=== PATIENT | female | born 1960 | race Caucasian/White ===

== ENCOUNTER → 2017-06-13 | Outpatient (CLI) | payer MEDICARE, OTHER ==
[~2017-06-13] MED LIST: ATEN50TA2 PO; BENA25TA10 PO; CALC600T31 PO; CALCCHW8 PO; CRAN400C PO; DOXY-278 PO; FASL250I2 IM; FLAX10002 PO; IBUP-1022 PO; LEVA1TAB2 PO; LUTE6TAB2 PO; OXYC1TAB23 PO; PANT40TA2 PO; SYNT150T PO; TURM500C3 PO; TYLE325T5 PO; VITA200016 PO; VITATAB11 PO; ZYRT10CA PO
--- NOTE | 2017-06-13 12:04 | REP ---
Ultrasound of the neck for palpable lump: The patient reportedly has a history of breast CA carcinoma and additionally history of parotid carcinoma with left parotidectomy. Additionally, the patient has a total thyroidectomy. There is a 6 x 3 mm height or echoic mass inferior to the mandible on the right. There are two hyperechoic masses inferior to the mandible on the left, one measuring 7 x 4 by 6 mm and the other measuring 10 x 6 x 6 mm. On the right. There is a lymph node measuring 10 x 9 x 5 mm. On the left. There is a lymph node measuring 2 x 6 x 6 mm. Given the clinical history consider follow-up MRI of the neck and possibly the PET scan. Signed by Bharathi Alonso MD 06/13/2017 11:55 A
== END ==
LOC: M RAD 10:44
PROVIDERS: ATTEND Internal Medicine Medical Oncology
DX: R22.1 Localized swelling, mass and lump, neck (principal)

== ENCOUNTER 2017-07-14 08:23 | Observation (INO) | payer MEDICARE, OTHER ==
[~2017-07-14] VITALS: Ht 172.7 cm; Wt 181.8 kg
[2017-07-14] MEDS ORDERED: TYLE325T5 PO (08:50)
[2017-07-14] MEDS ORDERED: CRAN400C PO (08:50)
[2017-07-14] MEDS ORDERED: FASL250I2 IM (08:50)
[2017-07-14] MEDS ORDERED: VITA200016 PO (08:50)
[2017-07-14] MEDS ORDERED: OXYC1TAB23 PO (08:50)
[2017-07-14] MEDS ORDERED: CALCCHW8 PO (08:50)
[2017-07-14] MEDS ORDERED: PANT40TA2 PO (08:50)
[2017-07-14] MEDS ORDERED: ATEN50TA2 PO (08:50)
[2017-07-14] MEDS ORDERED: FLAX10002 PO (08:50)
[2017-07-14] MEDS ORDERED: IBUP-1022 PO (08:50)
[2017-07-14] MEDS ORDERED: LUTE6TAB2 PO (08:50)
[2017-07-14] MEDS ORDERED: TURM500C3 PO (08:50)
[2017-07-14] MEDS ORDERED: SYNT150T PO (08:50)
[2017-07-14] MEDS ORDERED: VITATAB11 PO (08:50)
[2017-07-14] MEDS ORDERED: BENA25TA10 PO (08:54)
[2017-07-14] MEDS ORDERED: ZYRT10CA PO (08:54)
[2017-07-14] MEDS ORDERED: NS 1,000 ML IV ONE (09:15)
[2017-07-14] MEDS ORDERED: CEFTAROLINE FOSAMIL 600 MG in D5W MINI-BAG PLUS 50 ML IV ONE (09:30)
[2017-07-14 09:43] LABS: BASO # 0.1 K/mm3 (0.0-0.2); BASO % 0.6 % (0.0-1.0); EOS # 0.2 K/mm3 (0.0-0.50); EOS % 2.2 % (0.0-3.0); LARGE UNSTAINED CELL # 0.3 K/mm3 (0.0-0.4); LARGE UNSTAINED CELL % 2.5 % (0.0-4.0); LYMPH % 17.9 % (24.0-44.0); MEAN CORPUSCULAR HEMOGLOBIN 31.3 pg (27.0-33.0); MEAN CORPUSCULAR HGB CONC 32.7 g/dl (32.0-36.5); MEAN CORPUSCULAR VOLUME 95.8 fl (80.0-96.0); MONO # 0.6 K/mm3 (0.0-0.8); MONO % 6.4 % (0.0-5.0); NEUTROPHILS # 6.8 K/mm3 (1.8-7.7); NEUTROPHILS % 70.4 % (36.0-66.0); PLATELET COUNT, AUTOMATED 192 k/mm3 (150-450); WHITE BLOOD COUNT 9.7 K/mm3 (4.0-10.0)
[2017-07-14 10:21] LABS: ANION GAP 6 MEQ/L (8-16); BLOOD UREA NITROGEN 16 MG/DL (7-18); CALCIUM LEVEL 9.1 MG/DL (8.5-10.1); CARBON DIOXIDE LEVEL 31 MEQ/L (21-32); CHLORIDE LEVEL 102 MEQ/L (98-107); CREATININE FOR GFR 0.84 MG/DL (0.55-1.02); GLOMERULAR FILTRATION RATE > 60.0 (>51); GLUCOSE, FASTING 111 MG/DL (70-105); POTASSIUM SERUM 3.3 MEQ/L (3.5-5.1); SODIUM LEVEL 139 MEQ/L (136-145)
[2017-07-14] MEDS ORDERED: CALC600T31 PO (13:37)
[2017-07-14] MEDS ORDERED: diphenhydrAMINE 25 MG CAP PO PRN (13:45)
[2017-07-14] MEDS ORDERED: PERCOCET 5MG/325MG TAB PO PRN (13:45)
[2017-07-14] MEDS ORDERED: IBUPROFEN 600 MG TAB PO PRN (13:45)
[2017-07-14] MEDS ORDERED: ONDANSETRON 4MG/2ML VIAL (J2405) IV PRN (13:45)
[2017-07-14] MEDS ORDERED: ACETAMINOPHEN 325 MG TAB PO PRN (13:45)
[2017-07-14] MEDS ORDERED: LevoFLOXacin IV 500 MG in APPROPRIATE DILUENT 1 EA IV SCH (14:00)
[2017-07-14] MEDS ORDERED: POTASSIUM CHLORIDE 10 MEQ SR TABLET PO ONE (14:00)
--- NOTE | 2017-07-14 14:29 | HPEPDOC ---
General Date of Admission Jul 14, 2017 at 13:41 Attending Physician: CHRIS MCDANIELS MD Chief Complaint The patient is a 57-year-old female admitted with a reason for visit of Cellulitis. History of Present Illness 57-year-old female with past medical history of hypertension, hypothyroidism, GERD, pulmonary embolism, recurrent breast cancer which is now metastatic and the patient follows with Dr. Tadeo of oncology, and is currently receiving chemotherapy every month for the last 1 year for presented to the ER with a chief complaint of rash with erythema across the abdominal wall. The patient states that the rash appeared this morning. She denies noting any fever, but does state that she has been feeling more lethargic/tired this morning. She denies any open wounds, any trauma to the abdominal region, or any complaints of abdominal pain. In the ER, the patient was noted to be afebrile, with a normal white blood cell count. However, given the patient's history of breast cancer for which she is currently on chemotherapy for, the patient will be admitted to the hospitalist service for observation and IV antibiotic treatment. Home Medications Scheduled (Faslodex) 250 Mg/5 Ml Inj, 250 MG IM QMONTH, (Reported) (Flax Seed Oil 1000 mg) 1 Cap Cap, 1 CAP PO BID, (Reported) Atenolol (Atenolol) 50 Mg Tab, 50 MG PO BID, (Reported) B1/B2/B3/B5/B6 (Vitamin B Complex) 1 Tab Tab, 1 TAB PO DAILY, (Reported) Calcium (Calcium) 600 Mg Tab, 600 MG PO QHS, (Reported) Cetirizine HCl (Zyrtec Allergy) 10 Mg Cap, 10 MG PO QHS, (Reported) Cranberry Extract (Cranberry) 400 Mg Cap, 400 MG PO BID, (Reported) Curcuma Longa (Turmeric) Extra (Turmeric) 500 Mg Cap, 500 MG PO DAILY, (Reported ) Levothyroxine Sodium (Synthroid) 150 Mcg Tab, 150 MCG PO DAILY, (Reported) Pantoprazole Sodium (Pantoprazole Sodium) 40 Mg Tab, 40 MG PO QHS, (Reported) Vegetable Enzyme (Lutein) 6 Mg Tab, 6 MG PO DAILY, (Reported) Vitamin D (Vitamin D) 2,000 Unit Cap, 2,000 UNIT PO BID, (Reported) Scheduled PRN Acetaminophen (Tylenol) 325 Mg Tab, 650 MG PO TID PRN for PAIN, (Reported) Diphenhydramine Hcl (Benadryl Allergy) 25 Mg Tab, 25 MG PO QHS PRN for ALLERGIES , (Reported) Ibuprofen (Ibuprofen) 600 Mg Tab, 600 MG PO Q6H PRN for PAIN, (Reported) Oxycodone/Acetaminophen (Oxycodone/Acetaminophen 5-325 mg) 1 Tab Tab, 1 TAB PO Q4H PRN for PAIN, (Reported) Allergies Coded Allergies: Filgrastim (Verified Allergy, Severe, ANAPHYLAXIS PER PATIENT, 02/09/13) Morphine (Verified Allergy, Severe, ANAPHYLAXIS PER PATIENT, 02/09/13) Gentamicin (Verified Allergy, Intermediate, HIVES ON PROMIXAL AND DISTAL LOWER EXTREMITIES, 02/09/13) Leuprolide (Verified Allergy, Intermediate, HIVE, 02/09/13) Penicillins (Verified Allergy, Intermediate, HIVES PROMIMAL/DISTAL EXTREM; LIKELEY RELATED TO GENT THOUGH, 02/09/13) Penicillins Cross Reactors (Verified Allergy, Intermediate, HIVES PROMIMAL /DISTAL EXTREM;LIKELEY RELATED TO GENT THOUGH, 02/09/13) Past Medical History Medical History As noted in HPI. Surgical History Thyroid surgery, hysterectomy, cholecystectomy, right-sided mastectomy, with implant insertion, left breast reduction Family History Significant Family History: No pertinent family hx Social History * Smoker: Denies Alcohol: Denies Drugs: denies Review of Symptoms Other systems 10 point review of systems negative unless otherwise specified HPI. Physical Examination General Exam: Positive: Alert, Cooperative, No Acute Distress ENT Exam: Positive: Atraumatic, Mucous membr. moist/pink Neck Exam: Negative: JVD Chest Exam: Positive: Clear to auscultation, Normal air movement Heart Exam: Positive: Rate Normal, Normal S1, Normal S2 Abdomen Exam: Positive: Soft, Other (abdominal wall noted to have cellulitic changes from one flank stretching across to the other flank. No warmth or tenderness on palpation. No open lesions noted. No guarding, rigidity, or rebound tenderness noted on palpation.), Negative: Tenderness Extremity Exam: Negative: Tenderness, Swelling Psych Exam: Positive: Oriented x 3 Vital Signs Vital Signs Date Time Temp Pulse Resp B/P (MAP) Pulse Ox O2 Delivery O2 Flow Rate FiO2 07/14/17 13:31 97.9 65 20 135/80 (98) 91 Room Air Laboratory Data Labs 24H Laboratory Tests 2 07/14/17 09:23: White Blood Count 9.7, Red Blood Count 4.66, Hemoglobin 14.6, Hematocrit 44.6, Mean Corpuscular Volume 95.8, Mean Corpuscular Hemoglobin 31.3, Mean Corpuscular Hemoglobin Concent 32.7, Red Cell Distribution Width 14.0, Platelet Count 192, Neutrophils (%) (Auto) 70.4H, Lymphocytes (%) (Auto) 17.9L, Monocytes (%) (Auto) 6.4H, Eosinophils (%) (Auto) 2.2, Basophils (%) (Auto) 0.6 , Neutrophils # (Auto) 6.8, Lymphocytes # (Auto) 2.0, Monocytes # (Auto) 0.6, Eosinophils # (Auto) 0.2, Basophils # (Auto) 0.1, Large Unclassified Cells % 2.5 , Large Unclassified Cells # 0.3, Anion Gap 6L, Glomerular Filtration Rate > 60.0, Lactic Acid Level 0.9, Blood Urea Nitrogen 16, Creatinine 0.84, Sodium Level 139, Potassium Level 3.3L, Chloride Level 102, Carbon Dioxide Level 31, Calcium Level 9.1 CBC/BMP Laboratory Tests 07/14/17 09:23 Red Blood Count 4.66, Mean Corpuscular Volume 95.8, Mean Corpuscular Hemoglobin 31.3, Mean Corpuscular Hemoglobin Concent 32.7, Red Cell Distribution Width 14.0 , Neutrophils (%) (Auto) 70.4 H, Lymphocytes (%) (Auto) 17.9 L, Monocytes (%) ( Auto) 6.4 H, Eosinophils (%) (Auto) 2.2, Basophils (%) (Auto) 0.6, Neutrophils # (Auto) 6.8, Lymphocytes # (Auto) 2.0, Monocytes # (Auto) 0.6, Eosinophils # ( Auto) 0.2, Basophils # (Auto) 0.1, Calcium Level 9.1 Microbiology Microbiology 07/14/17 Blood Culture, Received Pending 07/14/17 Blood Culture, Received Pending Plan / VTE VTE Prophylaxis Ordered?: Yes Plan Plan Abdominal Wall Cellulitis Patient is afebrile, with a normal white blood cell count, and a normal lactate However, given the patient's history of breast cancer for which she is currently on chemotherapy for, we will start the patient on empiric IV antibiotic treatment with Teflaro and Levaquin (penicillin allergy) Blood cultures have already been sent, and we will follow up with these We will order inflammatory markers as well to trend We will continue to monitor the patient's progress Hypertension, stable Continue atenolol Hypothyroidism Continue levothyroxine GERD Continue Protonix Metastatic Breast Cancer Receives chemotherapy every 4 weeks for the last 1 year, follows with Dr. Tadeo as an outpatient History of pulmonary embolism Status post treatment DVT prophylaxis Lovenox The patient will be admitted under the service of Dr. Mcdaniels, who will begin to follow the patient on 07/15/17 at 7 AM. WELLINGTON FERRARA MD Jul 14, 2017 14:29
[2017-07-14 14:30] LABS: ERYTHROCYTE SEDIMENTATION RATE 26 mm/hr (0-30)
[2017-07-14 15:27] VITALS: BP 136/84
[2017-07-14] MEDS ORDERED: CETIRIZINE (ZyrTEC) 10 MG TAB PO SCH (21:00)
[2017-07-14] MEDS ORDERED: PANTOPRAZOLE 40MG TAB (PROTONIX) PO SCH (21:00)
[2017-07-14] MEDS: VITAMIN D 1,000 INTERNATIONAL UNITS TABLET PO SCH (21:59)
[2017-07-14] MEDS: ATENOLOL 50 MG TAB PO SCH (22:00)
[2017-07-14] MEDS: CEFTAROLINE FOSAMIL 600 MG in D5W MINI-BAG PLUS 50 ML IV SCH (22:01)
[2017-07-14 22:05] VITALS: BP 144/79
[2017-07-15 06:00] VITALS: BP 126/74
[2017-07-15] MEDS ORDERED: LEVOTHYROXINE 150MCG TABLET (0.15MG) PO SCH (06:00)
[2017-07-15 07:08] LABS: BASO # 0.1 K/mm3 (0.0-0.2); BASO % 0.6 % (0.0-1.0); EOS # 0.4 K/mm3 (0.0-0.50); EOS % 4.3 % (0.0-3.0); LARGE UNSTAINED CELL # 0.3 K/mm3 (0.0-0.4); LARGE UNSTAINED CELL % 3.5 % (0.0-4.0); LYMPH # 2.2 K/mm3 (1.5-4.5); LYMPH % 19.2 % (24.0-44.0); MEAN CORPUSCULAR HEMOGLOBIN 31.3 pg (27.0-33.0); MEAN CORPUSCULAR HGB CONC 32.2 g/dl (32.0-36.5); MEAN CORPUSCULAR VOLUME 97.5 fl (80.0-96.0); MONO # 0.8 K/mm3 (0.0-0.8); MONO % 8.1 % (0.0-5.0); NEUTROPHILS # 6.2 K/mm3 (1.8-7.7); NEUTROPHILS % 64.3 % (36.0-66.0); PLATELET COUNT, AUTOMATED 174 k/mm3 (150-450); WHITE BLOOD COUNT 9.6 K/mm3 (4.0-10.0)
[2017-07-15 07:29] LABS: ALBUMIN/GLOBULIN RATIO 0.71 (1.00-1.93); ALKALINE PHOSPHATASE 62 U/L (45-117); ALT/SGPT 32 U/L (12-78); ANION GAP 5 MEQ/L (8-16); AST/SGOT 19 U/L (15-37); BILIRUBIN,TOTAL 0.4 MG/DL (0.2-1.0); BLOOD UREA NITROGEN 17 MG/DL (7-18); CALCIUM LEVEL 9.4 MG/DL (8.5-10.1); CARBON DIOXIDE LEVEL 30 MEQ/L (21-32); CHLORIDE LEVEL 106 MEQ/L (98-107); CREATININE FOR GFR 0.84 MG/DL (0.55-1.02); GLOMERULAR FILTRATION RATE > 60.0 (>51); GLUCOSE, FASTING 101 MG/DL (70-105); MAGNESIUM LEVEL 2.1 MG/DL (1.8-2.4); SODIUM LEVEL 141 MEQ/L (136-145); TOTAL PROTEIN 7.2 GM/DL (6.4-8.2)
[2017-07-15 07:31] LABS: ERYTHROCYTE SEDIMENTATION RATE 30 mm/hr (0-30)
[2017-07-15] MEDS ORDERED: ENOXAPARIN 40 MG/0.4 ML SYRINGE (J1650) SC SCH (09:00)
[2017-07-15] MEDS ORDERED: VITAMIN B COMPLEX/VIT C CAP PO SCH (09:00)
[2017-07-15] MEDS: VITAMIN D 1,000 INTERNATIONAL UNITS TABLET PO SCH (09:55)
[2017-07-15 09:56] VITALS: BP 141/82
[2017-07-15] MEDS: ATENOLOL 50 MG TAB PO SCH (09:56)
[2017-07-15] MEDS: CEFTAROLINE FOSAMIL 600 MG in D5W MINI-BAG PLUS 50 ML IV SCH (09:56)
[2017-07-15] MEDS ORDERED: DOXY-278 PO (11:20)
[2017-07-15] MEDS ORDERED: LEVA1TAB2 PO (11:20)
--- NOTE | 2017-07-15 17:50 | DSES ---
DATE OF ADMISSION: 07/14/2017 DATE OF DISCHARGE: 07/15/2017 ATTENDING PHYSICIAN: Dr. Adeline Bah PRIMARY CARE PHYSICIAN: Dr. Annette Conteh REFERRING PHYSICIAN: None. CONSULTATIONS: None. CONDITION ON DISCHARGE: Stable. FINAL DIAGNOSIS: Abdominal wall cellulitis. PROCEDURES: None. HISTORY OF PRESENT ILLNESS: Patient is a 57-year-old female with a past medical history of hypertension, hypothyroidism, GERD, pulmonary embolism, recurrent breast cancer which is not metastatic and follows Dr. Tadeo as an outpatient. Patient received chemotherapy every month for the last one year and presented to the emergency room with complaints of rash with erythema across her abdominal wall. Patient states that the rash appeared in the morning. She denies any fever. Denies any open wounds or trauma to the abdominal wall. Denies any abdominal pain. HOSPITAL COURSE: 1. Abdominal wall cellulitis. Patient is afebrile throughout the hospital course and on presentation in the emergency room the patients white cell count remained normal. Patient had a normal lactic acid. Patient was started on Ceftaroline and Levaquin for antibiotic coverage. Blood cultures were acquired and have been negative after 24 hours. On subsequent evaluation this morning the patient had significant improvement in her abdominal cellulitis. Her antibiotics were transitioned to oral medication, Levaquin and doxycycline. Patient was advised to followup with her primary care provider and to continue with antibiotics for completion of antibiotic course. 2. Hypertension. Blood pressure remains stable. Will continue with Atenolol. 3. Hypothyroidism. Continue with Levothyroxine. 4. GERD. Continue with the Protonix. 5. Metastatic breast cancer. Received chemotherapy every 4 weeks for the last one year. Will follow with Dr. Tadeo as an outpatient. 6. History of pulmonary embolism, status-post treatment. 7. DVT prophylaxis. Lovenox. DISCHARGE MEDICATIONS: The patient was discharged home with the following medication list: - acetaminophen 650 mg by mouth three times a day - atenolol 50 mg by mouth twice a day - vitamin B complex 1 tab by mouth daily - calcium 600 mg at bedtime - Cefatrizine 10 mg by mouth at bedtime - tumeric extract 500 mg by mouth daily - diphenhydramine 25 mg by mouth at bedtime as needed for allergies - Faslodex 250 mg intramuscular monthly - flax seed oil 1 capsule by mouth twice a day - ibuprofen 600 mg by mouth every 6 hours as needed for pain - levothyroxine 150 mcg by mouth daily - oxycodone/acetaminophen 5/325 1 tablet by mouth every 4 hours as needed for pain. - Protonix 40 mg by mouth at bedtime - vegetable enzyme 6 mg by mouth daily - vitamin D 2,000 units by mouth twice a day NEW MEDICATIONS PRESCRIBED: - doxycycline 100 mg by mouth twice a day for the next 7 days - levofloxacin 500 mg by mouth daily for the next 7 days DISCHARGE INSTRUCTIONS: Patient was advised to followup with her primary care provider within the next 7 days. She was advised to remain compliant with treatment plan and medications and return to the emergency room if she experiences any problems. TIME SPENT ON DISCHARGE: Greater than 35 minutes.
== END 2017-07-15 14:10 | disposition home or self-care (01) ==
LOC: M ED 08:23 → M ED INP 13:41 → M MS4PR 15:30
PROVIDERS: ADMIT Internal Medicine; ATTEND Internal Medicine
DX: L03.319 Cellulitis of trunk, unspecified (principal); I10 Essential (primary) hypertension; E03.9 Hypothyroidism, unspecified; K21.9 Gastro-esophageal reflux disease without esophagitis; Z86.711 Personal history of pulmonary embolism; Z85.3 Personal history of malignant neoplasm of breast; Z92.21 Personal history of antineoplastic chemotherapy; Z79.899 Other long term (current) drug therapy; Z88.0 Allergy status to penicillin; Z88.8 Allergy status to other drugs, medicaments and biological substances
CPT/HCPCS: 36415; 80048; 80053; 83605; 83735; 85025; 85652; 86140; 87040; 96365; 96366; 96367; 96372; 96374; 99284; G0378; J1650; J1956

== ENCOUNTER → 2017-08-04 | Outpatient (CLI) | payer MEDICARE, OTHER ==
--- NOTE | 2017-08-05 08:59 | REP ---
MR NECK WITHOUT AND WITH CONTRAST: HISTORY: Neck mass. CONTRAST: ProHance 20 mL. The naso-, adrianna-, and hypopharynx, larynx and subglottic trachea are normal in appearance. The submandibular and right parotid glands are normal in size. The left parotid gland is small in size. The salivary glands are normal in signal intensity. The thyroid gland is not seen. Small lymph nodes less than 1 cm in size are present in the internal jugular chains, posterior triangles and submandibular areas. IMPRESSION: There is no neck mass or adenopathy. Signed by Chi Nash MD 08/05/2017 09:03 A
== END ==
LOC: M PLARAD 15:04
PROVIDERS: ATTEND Internal Medicine Medical Oncology
DX: R22.1 Localized swelling, mass and lump, neck (principal); Z85.3 Personal history of malignant neoplasm of breast
CPT/HCPCS: 70543; A9576

== ENCOUNTER → 2018-04-22 | Outpatient (CLI) | payer MEDICARE, OTHER, BC ==
[~2018-04-22] MED LIST changes: -ATEN50TA2 PO; -BENA25TA10 PO; -CALC600T31 PO; -CALCCHW8 PO; -CRAN400C PO; -DOXY-278 PO; -FASL250I2 IM; -FLAX10002 PO; -IBUP-1022 PO; -LEVA1TAB2 PO; -LUTE6TAB2 PO; -OXYC1TAB23 PO; -PANT40TA2 PO; +PROHANCE 279.3MG/ML 15ML VIAL (A9576) As Ordered; -SYNT150T PO; -TURM500C3 PO; -TYLE325T5 PO; -VITA200016 PO; -VITATAB11 PO; -ZYRT10CA PO
== END ==
LOC: M RAD 16:32
DX: M25.561 Pain in right knee (principal); M25.562 Pain in left knee
CPT/HCPCS: A9576

== ENCOUNTER → 2018-07-08 | Outpatient (CLI) | payer MEDICARE, OTHER ==
[~2018-07-08] MED LIST changes: +ISOVUE-370 76% 100ML VIAL (Q9967) As Ordered; -PROHANCE 279.3MG/ML 15ML VIAL (A9576) As Ordered
== END ==
LOC: M RAD 15:49
DX: R06.02 Shortness of breath (principal); C50.919 Malignant neoplasm of unspecified site of unspecified female breast; Z86.711 Personal history of pulmonary embolism; Z90.11 Acquired absence of right breast and nipple; D18.03 Hemangioma of intra-abdominal structures
CPT/HCPCS: Q9967